=== PATIENT | male | born 1950 | race Caucasian/White ===

== ENCOUNTER 2019-10-13 14:08 | Emergency (ER) | payer SELFPAY ==
[2019-10-13] MEDS ORDERED: Sodium Chloride 0.9% 1,000 ML IV ONE (14:09)
[2019-10-13] MEDS ORDERED: Lactated Ringers 1,000 ML IV ONE ×3 (14:09→15:30)
[2019-10-13] MEDS ORDERED: EPINEPHrine 1:10,000 1 MG/10 ML Syringe ONE ×10 (14:11→14:24)
[2019-10-13] MEDS ORDERED: Sodium Bicarbonate 8.4% 50 MEQ/50 ML Syringe ONE (14:13)
[2019-10-13] MEDS ORDERED: Amiodarone 150 MG/3 ML SDV ONE (14:24)
[2019-10-13] MEDS ORDERED: Amiodarone 360 MG In Dextrose 200 ML IV SCH (14:24)
[2019-10-13] MEDS ORDERED: Atropine 0.1 MG/ML 10 ML Syringe ONE (14:40)
[2019-10-13] MEDS ORDERED: Succinylcholine 200 MG/10 ML MDV ONE (15:00)
[2019-10-13] MEDS ORDERED: Midazolam 1 MG/ML 5 ML SDV ONE (15:00)
[2019-10-13] MEDS ORDERED: Lidocaine 1% with EPINEPHrine 1:100,000 20 ML MDV ONE (15:21)
--- NOTE | 2019-10-13 15:42 | EDM.PDOC ---
ED HPI GENERAL MEDICAL PROBLEM - General Chief Complaint: CPR in Progress Stated Complaint: [facility] Time Seen by Provider: 10/13/19 14:10 Source of Information: Reports: EMS, RN Notes Reviewed - History of Present Illness INITIAL COMMENTS - FREE TEXT/NARRATIVE: 69 yr old male brought in by EMS in Cardiac arrest. He was found lying by his vehicle not breathing, unresponsive. Call went out to EMS about 13:45. On their arrival he was not breathing, mildly dusky, no pulse, asystole on cardiac moniter. CPR was started, he was given epinephrine, defbrillated which resulted in fine V fib. 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 On arrival CPR in progress. Code blue called L[employer]IC GENERAL WORKER. ED ROS GENERAL - Review of Systems Review Of Systems: Unable To Obtain Reason Not Obtained: Cardiac arrest ED EXAM, CPR - Physical Exam Exam: See Below General Appearance: Other (CPR in progress, not breathing, not dusky) Eye Exam: Bilateral Eye: Other (pupils are mid sized, nonreactive) Ears: Normal External Exam Throat/Mouth: Other (Serafin airway in place, no active bleeding) Head: Atraumatic Neck: Other (No JVD) Respiratory Chest: Other (full breath sounds bilat with bagged ventilations) Cardiovascular: CPR In Progress GI/Abdominal Exam: Other (moderate distension) Extremities: No: Pedal Edema, Redness Skin Exam: Cool EKG INTERPRETATION EKG Date: 10/13/19 Rhythm: NSR Rate (Beats/Min): 74 QRS: Wide ST-T: Elevated (anterior leads) Course - Orders/Labs/Meds Orders: Active Orders 24 hr Category Date Time Status Chest 1V Frontal [CR] Routine Exams 10/13/19 14:49 Taken Chest 1V-Tube Placement Chk NC [CR] Routine Exams 10/13/19 15:50 Taken Retroperitoneal Ltd [US] Routine Exams 10/13/19 Taken Labs: Laboratory Tests 10/13/19 10/13/19 10/13/19 Range/Units 14:25 14:25 15:46 WBC 10.28 H (4.23-9.07) K/mm3 RBC 4.87 (4.63-6.08) M/mm3 Hgb 14.1 (13.7-17.5) gm/dl Hct 44.4 (40.1-51.0) % MCV 91.2 (79.0-92.2) fl MCH 29.0 (25.7-32.2) pg MCHC 31.8 L (32.2-35.5) g/dl RDW Std Deviation 44.0 H (35.1-43.9) fL Plt Count 158 L (163-337) K/mm3 MPV 10.4 (9.4-12.3) fl Neut % (Auto) 46.2 (34.0-67.9) % Lymph % (Auto) 45.8 (21.8-53.1) % [place] % (Auto) 5.0 L (5.3-12.2) % Eos % (Auto) 1.6 (0.8-7.0) Baso % (Auto) 0.3 (0.1-1.2) % Neut # (Auto) 4.76 (1.78-5.38) K/mm3 Lymph # (Auto) 4.71 H (1.32-3.57) K/mm3 [place] # (Auto) 0.51 (0.30-0.82) K/mm3 Eos # (Auto) 0.16 (0.04-0.54) K/mm3 Baso # (Auto) 0.03 (0.01-0.08) K/mm3 Manual Slide Review Normal smear Sodium 142 (136-145) mEq/L Potassium 4.5 (3.5-5.1) mEq/L Chloride 108 H (98-107) mEq/L Carbon Dioxide 21 (21-32) mEq/L Anion Gap 17.5 H (5-15) BUN 18 (7-18) mg/dL Creatinine 1.4 H (0.7-1.3) mg/dL Est Cr Clr Drug Dosing TNP Estimated GFR (MDRD) 51 (>60) mL/min BUN/Creatinine Ratio 12.9 L (14-18) Glucose 145 H (80-115) mg/dL Calcium 8.2 L (8.5-10.1) mg/dL Total Bilirubin 0.4 (0.2-1.0) mg/dL AST 170 H (15-37) U/L ALT 60 (16-63) U/L Alkaline Phosphatase 64 (46-116) U/L Troponin I 39.570 H* (0.00-0.056) ng/mL Total Protein 6.0 L (6.4-8.2) g/dl Albumin 2.9 L (3.4-5.0) g/dl Globulin 3.1 gm/dL Albumin/Globulin Ratio 0.9 L (1-2) COVID-19 (ZENY) Negative (NEGATIVE) Meds: Medications Discontinued Medications Generic Name Dose Route Start Last Admin Trade Name Freivania PRN Reason Stop Dose Admin Clopidogrel Bisulfate 300 mg 10/13/19 16:25 Plavix PO 10/13/19 16:26 ONETIME ONE Clopidogrel Bisulfate Confirm 10/13/19 16:25 Plavix Administered 10/13/19 16:26 Dose 75 mg .ROUTE .STK-MED ONE Clopidogrel Bisulfate Confirm 10/13/19 16:27 Plavix Administered 10/13/19 16:28 Dose 225 mg .ROUTE .STK-MED ONE Iopamidol 100 ml 10/13/19 15:44 10/13/19 16:12 Isovue-300 (61%) IVPUSH 10/13/19 15:45 100 ml ONETIME ONE Administration Lidocaine/Epinephrine Confirm 10/13/19 15:21 Xylocaine 1% With Epinephrine 1:100,000 Administered 10/13/19 15:22 Dose 20 ml .ROUTE .STK-MED ONE Sodium Chloride 10 ml 10/13/19 15:44 10/13/19 16:12 Saline Flush FLUSH 10/13/19 15:45 10 ml ONETIME ONE Administration - Re-Assessments/Exams Free Text/Narrative Re-Assessment/Exam: 10/13/19 17:54 Pt arrived at our ED at around 1408. PEA initial rythm on arrival, good femoral pulse with CPR. Many doses epinephrine given per ACLS protocol, was given 2 doses of bicarb IV. Continued to ventilate with Serafin airway. Continued with PEA, no palpable pulse, pupils mid sized, nonreactive. At 14:20 we detected a strong pulse that did last for about 3 to 4 minutes. Amiodarone drip started. Anesthesia present, about to intubate when we lost the pulse, CPR resumed. IV NS and IV LR running wide open. More doses of epi. resulted in return of pulse at 14:38, Pt than intubated at that time. At 14:55 BP of 102/75. ABG's ordered. CXR ordered. At around 15:00 CXR shows L pneumothorax, needle place midclavicular line 2nd intercostal space L chest, no gush or air. Dr Fitch called to put in L chest tube. Center helicopter flight team called for transfer. Still weak pulse, BP of about 80 systolic, levophed drip ordered. Initial EKG shows Wide complex rythm, St elevation of 3 to 4 mm ant leads. 15:15. Trop is back elevated at 39.5. Other labs all relatively OK, see reported values. Discussed with Dr Shirley CANCHOLA, [facility], Dr Lovelace Ladler brickmason apprentice. Repeat EKG improved. Dr Lovelace recomends Head and chest CT, give aspirin, plavix, start heparin drip if no head bleed and no significant amt of blood in the chest. Dr Lovelace after reviewing 2nd EKG, improved from first NO TNK. 16:05. Flight team here. Head CT looks good. 16:15.CT of chest shows small amt of density, blood around tube, mult. broken ribs. small L pneumothorax, consolidation of R lung base either due to collapse of the R lower lung or possible consolidation from pneumonia. L pneumothorax still visible. markedly improved from before chest tube. See Radiologist report for details. current BP 134/89, 89, 90 %. Flight team about ready to go. Have advised aspirin 325 which they will give suppos, plavix 300 mg which they will give per NG, will start heparin drip at 1000 units per hr. no bolus. 10/13/19 18:10. Dr Watson [facility] [place] accepting Phys. Transferred by [facility] [employer] [facility] helicopter. Departure - Departure Time of Disposition: 15:15 Disposition: DC/Tfer to Acute Hospital 02 Clinical Impression: Cardiac arrest, Non-STEMI (non-ST elevated myocardial infarction) Pneumothorax Qualifiers: Pneumothorax type: traumatic Encounter type: initial encounter Qualified Code(s): S27.0XXA - Traumatic pneumothorax, initial encounter Ribs, multiple fractures Qualifiers: Encounter type: initial encounter Fracture type: closed Laterality: unspecified laterality Qualified Code(s): S22.49XA - Multiple fractures of ribs, unspecified side, initial encounter for closed fracture - Discharge Information Referrals: PCP,None [Primary Care Provider] - Forms: ED Department Discharge - My Orders Last 24 Hours: My Active Orders 10/13/19 Retroperitoneal Ltd [US] Routine 10/13/19 14:49 Chest 1V Frontal [CR] Routine 10/13/19 15:50 Chest 1V-Tube Placement Chk NC [CR] Routine - Assessment/Plan Last 24 Hours: My Active Orders 10/13/19 Retroperitoneal Ltd [US] Routine 10/13/19 14:49 Chest 1V Frontal [CR] Routine 10/13/19 15:50 Chest 1V-Tube Placement Chk NC [CR] Routine
[2019-10-13] MEDS ORDERED: Sodium Chloride 0.9% 10 ML Syringe FLUSH ONE (15:44)
[2019-10-13] MEDS ORDERED: Iopamidol 612 MG/ML 100 ML Bottle IVPUSH ONE (15:44)
--- NOTE | 2019-10-13 16:21 | CT ---
Head CT Technique: Multiple axial sections through the brain were obtained. Intravenous contrast was not utilized. Comparison: No prior intracranial imaging is available. Findings: Ventricles along with basal cisterns and sulci over the convexities are within normal limits for the patient's age. No abnormal parenchymal densities are seen. No evidence of intracranial hemorrhage. No midline shift or mass-effect is seen. Visualized paranasal sinuses and mastoid sinuses show nothing acute. No acute calvarial abnormality is seen. Subcutaneous air is scattered within the lower neck from the subcutaneous air within the chest. Impression: 1. Subcutaneous air is noted above. 2. No acute intracranial abnormality is appreciated. Diagnostic code #2 This report was dictated in MDT
[2019-10-13] MEDS ORDERED: Clopidogrel 75 MG Tab PO ONE (16:25)
[2019-10-13] MEDS ORDERED: Clopidogrel 75 MG Tab ONE ×2 (16:25→16:27)
--- NOTE | 2019-10-13 16:28 | CT ---
CT chest Technique: Multiple axial sections through the chest were obtained. Intravenous contrast was utilized. Diffuse subcutaneous air within the left chest. Left-sided chest tube is seen which crosses the lung and abuts the mediastinum. Moderate left-sided pneumothorax remains. Slight increased density along the chest tube presumably due to small amount of hemorrhage. Consolidation is noted within the right lung base. Small right-sided pneumothorax is seen. Visualized upper abdominal structures show nothing acute. Nasogastric tube is seen with tip lying within the stomach. Aorta shows no aneurysm. Mediastinal air is seen as well as subcutaneous air within the neck. Tip of endotracheal tube terminates slightly above the ayush. Mild coronary artery calcification is seen. Bone window settings were reviewed. Fracture is identified within the right fourth rib. This is mildly displaced. Nondisplaced fracture is noted within the third rib, fourth rib as well as displaced fracture within the fifth rib. Nondisplaced fracture is noted within the sixth rib No vertebral body compression deformities are seen. Impression: 1. Small right-sided pneumothorax with moderate size left-sided pneumothorax. 2. Left-sided chest tube which appears to cross the chest with the tip abutting the mediastinum. 3. Increased density along the chest tube presumably due to small amount of hemorrhage. 4. Consolidation with the right lung base either due to collapse of the right lower lung or possibly consolidation from pneumonia. 5. Single rib fracture on the right is visualized with multiple left-sided rib fractures. Diagnostic code #5 This report was dictated in MDT
--- NOTE | 2019-10-13 16:34 | PCM.SN.2 ---
- Free Text/Narrative Note: Called for Code Blue. Intubation requested by Dr. Cleaning after return of pulse. EMS had placed a Serafin Airway prior to hospital. Patient unresponsive to stimulation. 140 mg IV succinylcholine administered. Intubation achieved with glidescope, 8.0 Oral Ett was placed, confirmed with EtCO2, Bilateral Breath Sounds, secured. Nadja Galaviz CRNA
--- NOTE | 2019-10-13 16:52 | PCM.CONS ---
H&P History of Present Illness - General Date of Service: 10/13/19 Source of Information: Provider History Limitations: Reports: Physical Impairment - History of Present Illness Initial Comments - Free Text/Narative: The patient is a 69 year old gentleman who presented in cardiac arrest. He was found to have a left sided pneumothorax during his resuscitation. Surgery was consulted to place an emergency chest tube. Pt is unable to provide any history. Social & Family History - Family History Family Medical History: Unobtainable H&P Review of Systems - Review of Systems: Review Of Systems: Unable To Obtain Reason Not Obtained: pt intubated in extremis Exam - Exam Exam: See Below - Exam Quality Assessment: Supplemental Oxygen General: Sedated, Obtunded HEENT: Other (intubated) Lungs: Other (subcutaneous air on left chest) Cardiovascular: Regular Rhythm - Patient Data Lab Results Last 24 hrs: Laboratory Results - last 24 hr 10/13/19 10/13/19 10/13/19 Range/Units 14:25 14:25 15:46 WBC 10.28 H (4.23-9.07) K/mm3 RBC 4.87 (4.63-6.08) M/mm3 Hgb 14.1 (13.7-17.5) gm/dl Hct 44.4 (40.1-51.0) % MCV 91.2 (79.0-92.2) fl MCH 29.0 (25.7-32.2) pg MCHC 31.8 L (32.2-35.5) g/dl RDW Std Deviation 44.0 H (35.1-43.9) fL Plt Count 158 L (163-337) K/mm3 MPV 10.4 (9.4-12.3) fl Neut % (Auto) 46.2 (34.0-67.9) % Lymph % (Auto) 45.8 (21.8-53.1) % [place] % (Auto) 5.0 L (5.3-12.2) % Eos % (Auto) 1.6 (0.8-7.0) Baso % (Auto) 0.3 (0.1-1.2) % Neut # (Auto) 4.76 (1.78-5.38) K/mm3 Lymph # (Auto) 4.71 H (1.32-3.57) K/mm3 [place] # (Auto) 0.51 (0.30-0.82) K/mm3 Eos # (Auto) 0.16 (0.04-0.54) K/mm3 Baso # (Auto) 0.03 (0.01-0.08) K/mm3 Manual Slide Review Normal smear Sodium 142 (136-145) mEq/L Potassium 4.5 (3.5-5.1) mEq/L Chloride 108 H (98-107) mEq/L Carbon Dioxide 21 (21-32) mEq/L Anion Gap 17.5 H (5-15) BUN 18 (7-18) mg/dL Creatinine 1.4 H (0.7-1.3) mg/dL Est Cr Clr Drug Dosing TNP Estimated GFR (MDRD) 51 (>60) mL/min BUN/Creatinine Ratio 12.9 L (14-18) Glucose 145 H (80-115) mg/dL Calcium 8.2 L (8.5-10.1) mg/dL Total Bilirubin 0.4 (0.2-1.0) mg/dL AST 170 H (15-37) U/L ALT 60 (16-63) U/L Alkaline Phosphatase 64 (46-116) U/L Troponin I 39.570 H* (0.00-0.056) ng/mL Total Protein 6.0 L (6.4-8.2) g/dl Albumin 2.9 L (3.4-5.0) g/dl Globulin 3.1 gm/dL Albumin/Globulin Ratio 0.9 L (1-2) COVID-19 (ZENY) Negative (NEGATIVE) Result Diagrams: 10/13/19 14:25 10/13/19 14:25 *Q Meaningful Use (ADM) - VTE Risk Assess *Q Each Risk Factor Represents 1 Point: Acute myocardial infarction, Medical Patient Currently on Bedrest Total Score 1 Point Risk Factors: 2 Each Risk Factor Represents 2 Points: Age 60 - 74 Years Total Score 2 Point Risk Factors: 2 Consult PN Assessment/Plan Procedures: left chest tube placement Problem List Initiated/Reviewed/Updated: Yes Plan: 69 y/o patient with left pneumothorax after cardiac arrest resuscitation - plan for left chest tube - medical management per ED - pt to transfer to [facility] Flynn MD General surgery
--- NOTE | 2019-10-13 18:37 | PCM.PRNOTE ---
- Free Text/Narrative Note: Date: October 13, 2019 Pre-procedure diagnosis: left pneumothorax Post-procedure diagnosis: Same Procedure: Placement of left tube thoracostomy Surgeon: Gretchen Flynn MD Anesthesia: 1% lidocaine with epinephrine Estimated blood loss: 3mL Indication:left pneumothorax after chest tube placement Description of the procedure: A time-out was completed verifying correct patient, procedure, and site. The patient was positioned appropriately for chest tube placement. The patients left chest was prepped and draped in sterile fashion. 1% Lidocaine was used to anesthetize the surrounding skin area. A 3 cm skin incision was made in the mid- axillary line at the level of the nipple. Utilizing blunt dissection a subcutaneous tunnel was created cephalad and superior to the palpated rib. The pleural space was entered bluntly and gush of air was observed. A finger was inserted into the pleural space to check for anatomy and guide tube insertion. A 36F thoracostomy tube was inserted and positioned appropriately. The chest tube was sutured securely to the skin and a sterile dressing applied. A pleurevac was attached to the chest tube and a chest x-ray obtained. The patient tolerated the procedure well and there were no complications noted. Gretchen Flynn MD General Surgery
--- NOTE | 2019-10-14 11:38 | CR ---
Chest: Portable supine view of the chest was obtained. Comparison: Prior chest x-ray of performed earlier on the same day (2:49 PM). Left-sided chest tube is seen. Tip lies within the upper left chest. Previous left-sided pneumothorax not appreciated on current study. Endotracheal tube is stable in position. Satisfactory position of nasogastric tube. Diffuse increased density within the right chest is seen and left lung shows slight left basilar atelectasis. Subcutaneous air is seen with left chest wall and extending into the left and right neck. Impression: 1. Tubes and catheters as noted above. 2. Previous pneumothorax not appreciated on this plain film study. 3. Mild left basilar atelectasis. Diffuse increased density within the right chest is seen. 4. Subcutaneous air with left chest wall extending into both sides of the neck. Diagnostic code #3 This report was dictated in MDT
--- NOTE | 2019-10-16 09:27 | CR ---
Chest: Portable supine view of the chest was obtained. Comparison: No previous chest imaging. Large left-sided pneumothorax is seen. Diffuse increased density within both sides of the chest are seen. Uncertain how much of this is relates to vascular redistribution from the pneumothorax versus actual parenchymal change. Endotracheal tube is seen with tip lying between the clavicle and ayush. Nasogastric tube is seen with tip lying within the stomach. Diffuse subcutaneous air noted within the left chest. Several left-sided rib fractures are noted. Impression: 1. Large left-sided pneumothorax with subcutaneous air within the left chest wall. Several left-sided rib fractures are noted. 2. Diffuse increased density within both sides of the lung, uncertain how much of this represents actual lung pathology versus change from the large pneumothorax. 3. Satisfactory position of endotracheal tube and nasogastric tube. Diagnostic code #5 This report was dictated in MDT MTDD
--- NOTE | 2019-10-16 09:37 | US ---
Abdominal aortic ultrasound: Multiple real-time images of the abdominal aorta were obtained. Technologist's note: Extremely limited exam Proximal and distal aorta showed no aneurysm. Velocity measurements are similar between both sides of the aorta. Mid aorta is obscured. Impression: 1. No definite abnormality is appreciated. Mid aorta not visualized. Diagnostic code #2 This report was dictated in MDT MTDD
== END 2019-10-13 16:23 ==
LOC: JD.ED 14:08
DX: I46.9 Cardiac arrest, cause unspecified (principal); S27.0XXA Traumatic pneumothorax, initial encounter; S22.49XA Multiple fractures of ribs, unspecified side, initial encounter for closed fracture; Z20.828 Contact with and (suspected) exposure to other viral communicable diseases
CPT/HCPCS: 32551; 36415; 70450; 71045; 71260; 76775; 80053; 84484; 85025; 87635; 92950; 99285; A9270; J0171; J0282; J0330; J0461; J2250; J7030; J7060; J7120; Q9967; 31500; 93010; 99291; J3490; U0002